=== PATIENT | female | born 2000 | race Caucasian/White ===

== ENCOUNTER 2021-07-05 17:50 | Emergency (ER) | payer BC ==
[2021-07-05 18:19] VITALS: BP 113/71; PULSE 98; TEMP 99; BMI 25.8
== END 2021-07-05 18:32 | disposition home or self-care (01) ==
LOC: FER 17:50
DX: R11.2 Nausea with vomiting, unspecified (principal); R19.7 Diarrhea, unspecified
CPT/HCPCS: 99281-25